=== PATIENT | female | born 1970 | race Caucasian/White ===

== ENCOUNTER 2017-01-19 12:47 | Observation (INO) | payer BC, OTHER ==
[~2017-01-19] VITALS: Ht 162.6 cm; Wt 67.8 kg
[2017-01-19] MEDS ORDERED: SODIUM CHLORIDE 0.9% 1,000ML IVBOLUS ONE ×2 (13:30→15:00)
[2017-01-19] MEDS ORDERED: SODIUM CHLORIDE FLUSH 10ML SYR IVF ONE (13:30)
[2017-01-19 13:39] LABS: HEMOGLOBIN 14.1 g/dL (11.7-16.4); WHITE BLOOD COUNT 9.2 x10^3/uL (3.4-10)
[2017-01-19 13:51] LABS: ASPARTATE AMINO TRANSFERASE 16 U/L (15-37); BLOOD UREA NITROGEN 18 mg/dL (7-18)
[2017-01-19] MEDS ORDERED: LEVO100T5 PO (14:45)
[2017-01-19] MEDS ORDERED: MIDAZOLAM 1 MG/ML, 2ML ONE (14:57)
[2017-01-19] MEDS ORDERED: FENTANYL PF 250 MCG/5ML ONE (14:57)
[2017-01-19] MEDS ORDERED: EPINEPHRINE 1 MG/ML, 1ML ONE (14:58)
[2017-01-19] MEDS ORDERED: SILVER NITRATE STICK TP ONE (14:58)
[2017-01-19] MEDS ORDERED: BUPIVACAINE/PF 0.25% ONE (14:59)
[2017-01-19] MEDS ORDERED: CEFOTETAN 2 GM ONE (15:33)
[2017-01-19] MEDS ORDERED: DEXAMETHASONE 4 MG/ML, 1ML ONE (15:33)
[2017-01-19] MEDS ORDERED: ONDANSETRON 2MG/ML, 2ML ONE (15:33)
[2017-01-19] MEDS ORDERED: PROPOFOL 10 MG/ML, 20ML ONE (15:33)
[2017-01-19] MEDS ORDERED: SUCCINYLCHOLINE 20 MG/ML, 10ML ONE (15:33)
[2017-01-19] MEDS ORDERED: HYDROmorphone 1 MG/ML, 1ML IV PRN (16:00)
[2017-01-19] MEDS ORDERED: ACETAMINOPHEN 325 MG TABLET PO PRN (16:00)
[2017-01-19] MEDS ORDERED: MIDAZOLAM 1 MG/ML, 2ML IV PRN (16:00)
[2017-01-19] MEDS ORDERED: ALBUTEROL/IPRATROPIUM 2.5MG/0.5MG, 3 ML NPPB PRN (16:00)
[2017-01-19] MEDS ORDERED: LORazepam 2 MG/ML, 1ML IVPush PRN (16:00)
[2017-01-19] MEDS ORDERED: LABETALOL 5MG/ML, 20ML IV PRN (16:00)
[2017-01-19] MEDS ORDERED: FENTANYL PF 100 MCG/2ML IV PRN (16:00)
[2017-01-19] MEDS ORDERED: MEPERIDINE/PF 25MG/0.5ML IVPush PRN (16:00)
[2017-01-19] MEDS ORDERED: hydrALAzine 20 MG/ML, 1ML IV PRN (16:00)
[2017-01-19] MEDS ORDERED: OXYcodone 5 MG/5 ML ORAL.SOL UDC PO PRN (16:00)
[2017-01-19] MEDS ORDERED: PROMETHAZINE 25 MG/ML, 1ML IV PRN (16:00)
[2017-01-19] MEDS ORDERED: ONDANSETRON 2MG/ML, 2ML IVPush PRN (16:00)
[2017-01-19] MEDS ORDERED: MEPERIDINE/PF 25MG/0.5ML ONE (16:21)
[2017-01-19] MEDS ORDERED: KETOROLAC 30 MG/1 ML IV PRN (17:30)
[2017-01-19] MEDS ORDERED: morphine SULFATE 10 MG/ML, 1ML IV PRN (17:30)
[2017-01-19] MEDS ORDERED: OXYcodone/APAP 5/325MG TABLET PO PRN (17:30)
[2017-01-19] MEDS ORDERED: OXYC-302 PO (18:30)
[2017-01-19 18:34] VITALS: BP 155/95
== END 2017-01-19 21:45 | disposition home or self-care (01) ==
LOC: ED 14:05 → EDIP 14:16 → 4NOR 17:09
PROVIDERS: ADMIT Obstetrics & Gynecology; ATTEND Obstetrics & Gynecology
DX: S31.41XA Laceration without foreign body of vagina and vulva, initial encounter (principal); E03.9 Hypothyroidism, unspecified; X58.XXXA Exposure to other specified factors, initial encounter; Y93.89 Activity, other specified; Y92.89 Other specified places as the place of occurrence of the external cause; Y99.8 Other external cause status
CPT/HCPCS: 36415; 57200; 80053; 84703; 85025; 85610; 85730; 86850; 86900; 99285; G0378; J0171; J0330; J1100; J2175; J2250; J2405; J2704; J3010; J3490; J7030; S0074